=== PATIENT | male | born 1995 | race Two or more races ===

== ENCOUNTER 2024-04-13 19:23 | Emergency (ER) | payer SELFPAY ==
[~2024-04-13] VITALS: Ht 170.2 cm; Wt 61.2 kg
[2024-04-13 19:36] VITALS: O2SAT 95
== END 2024-04-13 19:50 | disposition left against medical advice (07) ==
LOC: ER 19:25
DX: F29 Unspecified psychosis not due to a substance or known physiological condition (principal); Z53.21 Procedure and treatment not carried out due to patient leaving prior to being seen by health care provider
CPT/HCPCS: A4606; A4663